=== PATIENT | female | born 1965 | race Hispanic/Latino ===

== ENCOUNTER 2018-11-02 14:28 | Emergency (ER) | payer BC ==
--- OUTSIDE RECORDS SUMMARY | 2018-11-02 14:30 | XMS REPORT | Continuity of Care Document ---
:1965 Author Organization Interface Problems Problem Status Onset Classification Date Comments Source Date Reported [id number],MORBID Active [facility] 5 City High blood Active Problem 11/09/2014 [facility] pressure [facility] Morbid Active Problem 11/09/2014 [facility] MORBID Active [facility] Medications Medication Details Route Status Patient Ordering Order Source Instructions Provider Date Promethazine 12.5 mg=1 tab, Active Hydrochloride PO, Q4H, PRN 2014 [facility] 12.5 MG Oral Nausea & City Tablet Vomiting, X 10 [Phenergan] day, # 30 tab, 0 Refill(s) Acetaminophen 15 ml, PO, Q4H, Active 24 MG/ML / PRN Pain, X [address] [facility] Codeine day, # 240 mL, 0 City Phosphate 2.4 Refill(s) MG/ML Oral Solution Enoxaparin 30 mg, 0.3 mL, Inactive Route: SUB-Q, 2014 [facility] Drug form: INJ, [facility] [id number], Dosing Weight 131.96, kg, Start date: 11/06/14 1:00:00, Stop date: 12/05/14 11:00:00Notes: (Same as: Lovenox) Famotidine 20 mg, 2 mL, No Longer Route: IVP, Drug Active 2014 [facility] form: INJ, Q12H, [facility] Dosing Weight 131.96, kg, Start date: 11/05/14 21:00:00, Duration: 30 day, Stop date: 12/05/14 9:00:00 Ketorolac 30 mg, 1 mL, No Longer Route: IVP, Drug Active 2014 [facility] form: INJ, Q6H, [facility] Dosing Weight 131.96, kg, Start date: 11/05/14 15:00:00, Duration: 6 doses or times, Stop date: 11/06/14 21:00:00Notes: (Same as:Toradol) IV bolus must be given >15 seconds. Give IM administration slowly and deeply into the muscle. Not for use > 4 days MEDICATION WASTE Product Size: 30 mg Product Wasted: ___ mg Sodium Chloride 25 mL, Route: No Longer 0.9% IV IV, Start date: Active [address] [place] [address] 11/05/14 [facility] 14:31:00, Duration: 30 day, Stop date: 12/05/14 14:30:00, PRN Line Flush BD Normal 10 mL, Route: No Longer Saline Flush IV, Drug Form: Active 2014 [facility] INJ, PRN, PRN [facility] Line Flush, Start date: 11/05/14 14:31:00, Duration: 30 day, Stop date: 12/05/14 14:30:00Notes: (Same as: BD Posiflush) Hydromorphone 15 mg, 30 mL, No Longer Route: IV, Active 2014 [facility] Loading [facility] Dose: 0.4mg, VACUUM APPLICATOR OPERATOR Dose: 0.2 mg, VACUUM APPLICATOR OPERATOR Lockout: 10 minutes, Continuous Basal Rate: 0 mg, 4 Hour Limit (In MG): 6, Drug Form: INJ, Continuous, Start date: 11/05/14 13:30:00, Duration: 30 day, Stop date: 12/05/14 13:...Notes: (Same as: Dilaudid) conc=0.5 mg/ml Hydromorphone VACUUM APPLICATOR OPERATOR Dose: ;Delay: ;Basal: Naloxone 0.04 mg, 0.1 mL, No Longer Route: IVP, Drug Active 2014 [facility] form: INJ, City Q2MIN, Dosing Weight 131.96, kg, PRN Narcotic Reversal, Start date: 11/05/14 13:03:00, Duration: 30 day, Stop date: 12/05/14 13:02:00Notes: Same as Narcan Hydromorphone 15 mg, 30 mL, Inactive Route: IV, 2014 [facility] Loading [facility] Dose: 0.4mg, VACUUM APPLICATOR OPERATOR Dose: 0.2 mg, VACUUM APPLICATOR OPERATOR Lockout: 10 minutes, Continuous Basal Rate: 0 mg, 4 Hour Limit (In MG): 6, Drug Form: INJ, Continuous, Start date: 11/05/14 12:30:00, Duration: 30 day, Stop date: 12/05/14 12:...Notes: (Same as: Dilaudid) conc=0.5 mg/ml Hydromorphone VACUUM APPLICATOR OPERATOR Dose: ;Delay: ;Basal: Naloxone 0.04 mg, 0.1 mL, Inactive Route: IVP, Drug 2014 [facility] form: INJ, City Q2MIN, Dosing Weight 131.96, kg, PRN Narcotic Reversal, Start date: 11/05/14 12:06:00, Duration: 30 day, Stop date: 12/05/14 12:05:00Notes: Same as Narcan enalaprilat 1.25 mg, 1 mL, No Longer Route: IVP, Drug Active 2014 [facility] form: INJ, Q6H, [facility] Dosing Weight 131.96, kg, PRN Hypertension, Start date: 11/05/14 12:04:00, Duration: 30 day, Stop date: 12/05/14 12:03:00, BP Systolic greater than 190 and BP Siastolic greater than 100Notes: (Same as: Vasotec-IV) Acetaminophen 15 mL, Route: No Longer 20 MG/ML / PO, Drug Form: Active 2014 [facility] Hydrocodone SOLN, Dosing City Bitartrate Weight 131.96, 0.667 MG/ML kg, Q4H, PRN Oral Solution Pain Score 4-6, Start date: 11/05/14 12:04:00, Duration: 30 day, Stop date: 12/05/14 12:03:00Notes: Do not exceed 4gm/day of acetaminophen. (Same as: [place] 325/7.5) Ondansetron 4 mg, 2 mL, No Longer Route: IVP, Drug Active 2014 [facility] form: INJ, Q12H, [facility] Dosing Weight 131.96, kg, PRN Nausea & Vomiting, Start date: 11/05/14 12:04:00, Duration: 30 day, Stop date: 12/05/14 12:03:00Notes: (Same as: Madyson) MEDICATION WASTE Product Size: 4 mg Product Wasted: ___ mg Promethazine 12.5 mg, 0.5 mL, No Longer Route: IM, Drug Active 2014 [facility] form: INJ, Q4H, [facility] Dosing Weight 131.96, kg, PRN Nausea & Vomiting, Start date: 11/05/14 12:04:00, Duration: 30 day, Stop date: 12/05/14 12:03:00Notes: Do not give IV push. (Same as: Phenergan) Calcium 1,000 mL, Rate: No Longer Chloride 0.0014 125 ml/hr, Active 2014 [facility] MEQ/ML / Infuse over: 8 City Potassium hr, Route: IV, Chloride 0.004 Dosing Weight MEQ/ML / Sodium 131.96 kg, Total Chloride 0.103 Volume: 1,000, MEQ/ML / Sodium Start date: Lactate 0.028 11/05/14 MEQ/ML 12:04:00, Injectable Duration: 30 Solution day, Stop date: 12/05/14 12:03:00 INVanz + Sodium 1 gm, Route: Inactive Chloride 0.9% IVPB, PRE OP, 2014 [facility] IV 100 mL Start date: [facility] 11/05/14 9:00:00, Duration: 1 doses or timesNotes: (Same as: INVanz) Refrigerate. NOT COMPATIBLE WITH D5W. Stable in refrigerator for 24 hours MEDICATION WASTE Product Size: 1000 mg Product Wasted: ___ mg Ondansetron 4 mg, 2 mL, Inactive Route: IVP, Drug 2014 [facility] form: INJ, ONCE, [facility] Dosing Weight 131.96, kg, PRN Nausea & Vomiting, Start date: 11/05/14 8:41:00Notes: (Same as: Zofran) MEDICATION WASTE Product Size: 4 mg Product Wasted: ___ mg Promethazine 6.25 mg, 0.25 No Longer mL, Route: IVPB, Active 2014 [facility] ONCE, Dosing City Weight 131.96, kg, PRN Nausea & Vomiting, Start date: 11/05/14 8:41:00Notes: Do not give IV push. (Same as: Phenergan) Dexamethasone 4 mg, 1 mL, No Longer Route: IVP, Drug Active 2014 [facility] form: INJ, ONCE, [facility] Dosing Weight 131.96, kg, PRN Nausea & Vomiting, Start date: 11/05/14 8:41:00Notes: Concentration: 4mg/ml Naloxone 0.04 mg, 0.1 mL, Inactive Route: IVP, Drug 2014 [facility] form: INJ, City Q2MIN, Dosing Weight 131.96, kg, PRN Narcotic Reversal, Start date: 11/05/14 8:41:00, Duration: 8 doses or times, Stop date: Limited # of timesNotes: Same as Narcan Flumazenil 0.2 mg, 2 mL, No Longer Route: IVP, Drug Active 2014 [facility] form: INJ, PRN, City Dosing Weight 131.96, kg, PRN Benzodiazepine Reversal, Initial dose, Start date: 11/05/14 8:41:00, Duration: 30 day, Stop date: 12/05/14 8:40:00Notes: (Same as: Romazicon) Meperidine 12.5 mg, 0.25 No Longer mL, Route: IVP, Active 2014 [facility] Drug form: INJ, City Q30Min, Dosing Weight 131.96, kg, PRN Other -See Comment, For shivering, Start date: 11/05/14 8:41:00, Duration: 2 doses or times, Stop date: Limited # of timesNotes: (Same As: Demerol) Calcium 1,000 mL, Rate: Inactive Chloride 0.0014 50 ml/hr, Infuse 2014 [facility] MEQ/ML / over: 20 hr, [facility] Potassium Route: IV, Chloride 0.004 Dosing Weight MEQ/ML / Sodium 131.96 kg, Total Chloride 0.103 Volume: 1,000, MEQ/ML / Sodium Start date: Lactate 0.028 11/05/14 MEQ/ML 8:41:00, Injectable Duration: 30 Solution day, Stop date: 12/05/14 8:40:00 Labetalol 5 mg, 1 mL, No Longer Route: IVP, Drug Active 2014 [facility] form: INJ, City Q5Min, Dosing Weight 131.96, kg, PRN Elevated BP, Start date: 11/05/14 8:41:00, Duration: 5 doses or times, Stop date: Limited # of timesNotes: (Same as: Normodyne, Trandate) Push over 2 minutes Give bolus over 2-3 minutes. Hydromorphone 0.5 mg, 0.25 mL, Inactive Route: IVP, Drug 2014 [facility] form: INJ, City Q5Min, Dosing Weight 131.96, kg, PRN Pain Score 7-10, Start date: 11/05/14 8:41:00, Duration: 4 doses or times, Stop date: Limited # of timesNotes: (Same as: Dilaudid) Morphine 2 mg, 0.2 mL, No Longer Route: IVP, Drug Active 2014 [facility] form: INJ, City Q5Min, Dosing Weight 131.96, kg, PRN Pain Score 4-6, Start date: 11/05/14 8:41:00, Duration: 5 doses or times, Stop date: Limited # of timesNotes: (Same as:MORPhine Sulfate) metoprolol 25 25 mg=1 tab, PO, Active 10/23/ mg oral tablet, Daily, [address] [facility] extended Refill(s) [facility] release lisinopril 10 10 mg=1 tab, PO, Active 10/23/ mg oral tablet Daily, [address] [facility] Refill(s) [facility] Allergies, Adverse Reactions, Alerts Substance Category Reaction Severity Reaction Status Date Comments Source type Reported Immunizations Immunization Date Given Site Status Last Updated Comments Source Results Order Name Results Value Reference Date Interpretation Comments Source Range ELECTROLYTE AGAP 10.4 meq/L 10.0 - 05 S 20.0 [facility] ELECTROLYTE B/C Ratio 13 6 - 25 11/06 [facility] ELECTROLYTE Globulin 3.0 g/dL 2.0 - 4.0 11/06 [facility] ELECTROLYTE A/G Ratio 1.1 0.7 - 1.6 11/06 S [facility] ELECTROLYTE Albumin Lvl 3.2 g/dL 3.5 - 5.0 11/06 [facility] ELECTROLYTE CO2 28 meq/L 24 - 32 11/06 [facility] ELECTROLYTE BUN 17 mg/dL 7 - 22 11/06 [facility] ELECTROLYTE Glucose Lvl 71 mg/dL 70 - 99 11/06 4Interpretive Data: Adult reference range values reflect the clinical guidelines of the [employer]. [facility] ELECTROLYTE AST 91 unit/L 0 - 37 11/06 S [facility] ELECTROLYTE Alk Phos 50 unit/L 39 - 136 11/06 S [facility] ELECTROLYTE Bili Total 0.4 mg/dL 0.2 - 1.3 11/06 S [facility] ELECTROLYTE Total 6.2 g/dL 6.4 - 8.4 11/06 S Protein [facility] ELECTROLYTE ALT 112 unit/L 0 - 65 11/06 S [facility] ELECTROLYTE eGFR 49 11/06 1Result Comment: The eGFR is calculated using the CKD-EPI formula. In most young, healthy individuals the eGFR will be > 90 mL/min/1.73m2. The eGFR declines with age. An eGFR of 60-89 may be normal in mL/min/1.7 some populations, particularly the elderly, for whom the CKD-EPI formula has not been extensively validated. Use of the eGFR is not recommended in the following populations: [address] Individuals with unstable creatinine concentrations, including patients and those with serious co-morbid conditions. Patients with extremes in muscle mass or diet. The data above are obtained from the National Kidney Disease Education Program (NKDEP) which additionally recommends that when the eGFR is used in patients with extremes of body mass index for purposes of drug dosing, the eGFR should be multiplied by the estimated BMI. ELECTROLYTE Chloride Lvl 102 meq/L 95 - 109 11/06 S [facility] ELECTROLYTE Calcium Lvl 8.1 mg/dL 8.5 - 10.5 11/06 S [facility] ELECTROLYTE Potassium 4.4 meq/L 3.5 - 5.1 11/06 S Lvl [facility] ELECTROLYTE Sodium Lvl 136 meq/L 135 - 145 11/06 S [facility] ELECTROLYTE Creatinine 1.3 mg/dL 0.5 - 1.4 11/06 S Lvl [facility] HEMATOLOGY Platelet 197 K/CMM 133 - 450 11/06 [facility] HEMATOLOGY MPV 8.3 fL 7.4 - 10.4 11/06 [facility] HEMATOLOGY WBC 6.2 K/CMM 3.7 - 10.4 11/06 [facility] HEMATOLOGY MCH 27.1 pg 27.0 - 11/06 MH 31.0 [facility] HEMATOLOGY MCHC 32.8 g/dL 32.0 - 11/06 MH 36.0 /2014 [facility] HEMATOLOGY RDW 16.9 % 11.5 - 11/06 MH 14.5 /2014 [facility] HEMATOLOGY MCV 82.7 fL 80.0 - 11/06 MH 98.0 /2014 [facility] Hgb 9.8 g/dL 12.0 - 11/06 MH 16.0 /2014 [facility] Hct 29.9 % 36.0 - 11/06 MH 48.0 /2014 [facility] RBC 3.61 M/CMM 4.20 - 05 MH 5.40 /2014 [facility] Segs-Bands # 4.3 K/CMM 1.5 - 8.1 05/08 MH /2014 [facility] Basophils 0.3 % 0.0 - 1.0 05/08 MH /2014 [facility] HEMATOLOGY Eosinophils 1.8 % 0.0 - 4.0 05/08 /2014 [facility] HEMATOLOGY Monocytes # 0.6 K/CMM 0.0 - 0.8 05/ /2014 [facility] HEMATOLOGY Lymphocytes 1.2 K/CMM 1.0 - 5.5 05/08 MH # /2014 [facility] HEMATOLOGY Eosinophils 0.1 K/CMM 0.0 - 0.5 05/08 MH # /2014 [facility] Monocytes 9.5 % 2.0 - 12.0 / /2014 [facility] HEMATOLOGY Lymphocytes 18.6 % 20.0 - 11/06 MH 40.0 /2014 [facility] HEMATOLOGY Segs 69.8 % 45.0 - 11/06 75.0 [facility] Upper GI Upper GI OMNIPAQUE UPPER GI SERIES 11/06/201411/06 - Series w Series - [facility] soluble DX soluble DX The fluoroscopy time is 3 seconds. Read by: Mike Jimenez MD Dictated Date/time: 11/06/14 07:53 Electronically Signed by: Mike Jimenez MD 11/06/14 07:53 FINAL REPORT Small volume of Omnipaque given orally passed easily from the distal esophagus into the gastric tube and duodenum. No contrast extravasation or obstruction is seen. Impression: 1. No contrast extravasation or obstruction identified. CHEM PANEL eGFR 41 11/05 2Result Comment: The eGFR is calculated using the CKD-EPI formula. In most young, healthy individuals the eGFR will be >90 mL/ min/1.73m2. The eGFR declines with age. An eGFR of 60-89 may be normal in mL/min/1. some populations, particularly the elderly, for whom the CKD-EPI formula has not been extensively validated. Use of the eGFR is not recommended in the following populations: [address] Individuals with unstable creatinine concentrations, including patients and those with serious co-morbid conditions. Patients with extremes in muscle mass or diet. The data above are obtained from the National Kidney Disease Education Program (NKDEP) which additionally recommends that when the eGFR is used in patients with extremes of body mass index for purposes of drug dosing, the eGFR should be multiplied by the estimated BMI. CHEM PANEL Creatinine 1.5 mg/dL 0.5 - 1.4 11/05 Lvl [facility] HEMATOLOGY PTT 32.7 s 22.9 - 11/05 8Interpretive 35.8 Data: Heparin [facility] Range: 57 - 92 Seconds HEMATOLOGY Platelet 219 K/CMM 133 - 450 11/05 [facility] BLOOD BANK Antibody Negative 11/[address] [facility] (11/05/14 9:00 AM) [facility] BLOOD BANK ABO/Rh O POS 11/05 RESULTS [facility] CHEM PANEL ALT 38 unit/L 0 - 65 10/23 [facility] CHEM PANEL Total 7.7 g/dL 6.4 - 8.4 10/23 [facility] CHEM PANEL AST 19 unit/L 0 - 37 10/23 [facility] CHEM PANEL Alk Phos 75 unit/L 39 - 136 10/23 [facility] CHEM PANEL Bili Total 0.3 mg/dL 0.2 - 1.3 10/23 [facility] CHEM PANEL eGFR 67 10/23 3Result Comment: The eGFR is calculated using the CKD-EPI formula. In most young, healthy individuals the eGFR will be >90 mL/ min/1.73m2. The eGFR declines with age. An eGFR of 60-89 may be normal in mL/min/1. some populations, particularly the elderly, for whom the CKD-EPI formula has not been extensively validated. Use of the eGFR is not recommended in the following populations: [address] Individuals with unstable creatinine concentrations, including patients and those with serious co-morbid conditions. Patients with extremes in muscle mass or diet. The data above are obtained from the National Kidney Disease Education Program (NKDEP) which additionally recommends that when the eGFR is used in patients with extremes of body mass index for purposes of drug dosing, the eGFR should be multiplied by the estimated BMI. CHEM PANEL Calcium Lvl 8.3 mg/dL 8.5 - 10.5 10/23 [facility] CHEM PANEL Chloride Lvl 103 meq/L 95 - 109 10/23 [facility] CHEM PANEL Potassium 3.5 meq/L 3.5 - 5.1 10/23 [facility] CHEM PANEL Sodium Lvl 137 meq/L 135 - 145 10/23 [facility] CHEM PANEL Creatinine 1.0 mg/dL 0.5 - 1.4 10/23 [facility] CHEM PANEL CO2 29 meq/L 24 - 32 10/23 [facility] CHEM PANEL BUN 18 mg/dL 7 - 22 10/23 [facility] CHEM PANEL Glucose Lvl 94 mg/dL 70 - 99 10/23 5Interpretive Data: Adult reference range values reflect the clinical guidelines of the [employer]. [facility] CHEM PANEL Albumin Lvl 3.8 g/dL 3.5 - 5.0 10/23 [facility] CHEM PANEL A/G Ratio 1.0 0.7 - 1.6 10/23 [facility] CHEM PANEL Globulin 3.9 g/dL 2.0 - 4.0 10/23 [facility] CHEM PANEL AGAP 8.5 meq/L 10.0 - 10/23 20.0 [facility] CHEM PANEL B/C Ratio 18 6 - 25 10/23 [facility] CHEM PANEL Vitamin D, null 30 - 100 10/23 6Interpretive Data: Reference range is based on recommendations in the Endocrine 25-OH, Total /2015 Society Clinical Practice Guideline (J Clin Endocrinol Metab [facility] 2011;96:9306-8796) [facility] HEMATOLOGY INR 0.94 0.85 - 10/23 7Interpretive Data: RECOMMENDED RANGES FOR PROTIME INR: 1. 2.0-3.0 for most medical and surgical thromboembolic states. [facility] 2.5-3.5 for artificial heart valves and recurrent embolism. [facility] INR SHOULD BE USED ONLY FOR PATIENTS ON STABLE ANTICOAGULANT THERAPY. HEMATOLOGY PT 12.6 s 12.0 - 10/23 MH 14.7 /2014 [facility] HEMATOLOGY PTT 35.0 s 22.9 - 10/23 9Interpretive MH 35.8 /2014 Data: Heparin [facility] Range: 57 - 92 Seconds HEMATOLOGY MPV 7.7 fL 7.4 - 10.4 10/23 /2014 [facility] HEMATOLOGY Platelet 264 K/CMM 133 - 450 10/23 /2014 [facility] HEMATOLOGY MCV 81.6 fL 80.0 - 10/23 MH 98.0 /2014 [facility] HEMATOLOGY MCHC 32.0 g/dL 32.0 - 10/23 MH 36.0 /2014 [facility] HEMATOLOGY RDW 16.3 % 11.5 - 10/23 MH 14.5 /2014 [facility] MCH 26.2 pg 27.0 - 10/23 MH 31.0 /2014 [facility] HEMATOLOGY RBC 4.21 M/CMM 4.20 - 10/23 MH 5.40 /2014 [facility] HEMATOLOGY Hct 34.4 % 36.0 - 10/23 MH 48.0 /2014 [facility] HEMATOLOGY Hgb 11.0 g/dL 12.0 - 10/23 MH 16.0 /2014 [facility] HEMATOLOGY WBC 6.8 K/CMM 3.7 - 10.4 10/23 /2014 [facility] HEMATOLOGY Eosinophils 0.2 K/CMM 0.0 - 0.5 10/23 MH # /2014 [facility] HEMATOLOGY Monocytes 10.6 % 2.0 - 12.0 10/23 /2014 [facility] HEMATOLOGY Lymphocytes 24.0 % 20.0 - 10/23 MH 40.0 /2014 [facility] HEMATOLOGY Monocytes # 0.7 K/CMM 0.0 - 0.8 10/23 /2014 [facility] HEMATOLOGY Lymphocytes 1.6 K/CMM 1.0 - 5.5 10/23 MH # /2014 [facility] HEMATOLOGY Segs-Bands # 4.2 K/CMM 1.5 - 8.1 10/23 /2014 [facility] HEMATOLOGY Segs 61.7 % 45.0 - 10/23 MH 75.0 [facility] HEMATOLOGY Basophils 0.7 % 0.0 - 1.0 10/23 /2014 [facility] HEMATOLOGY Eosinophils 3.0 % 0.0 - 4.0 10/23 /2014 [facility] PARATHYROID PTH Intact 149.5 11.1 - 10/23 MH PROFILE pg/mL 79.5 /2014 [facility] URINE AND Micro? Performed 10/23 [facility] *NA* [facility] (10/23/14 2:48 PM) URINE AND UA <=1.0 0.1 - 1.0 10/23 STOOL Urobilinogen mg/dL [facility] URINE AND UA Mucus Few /LPF None Seen 10/23 STOOL /LPF /2014 [facility] URINE AND UA Leuk Est Negative Negative 10/[address] [facility] (10/23/14 2:48 PM) [facility] URINE AND UA Ketones Negative Negative 10/23 STOOL mg/dL mg/dL [facility] URINE AND UA Bili Negative Negative 10/[address] [facility] *NA* [facility] (10/23/14 2:48 PM) URINE AND UA Blood Large Negative 10/23 [facility] *ABN* [facility] (10/23/14 2:48 PM) URINE AND UA Nitrite Negative Negative 10/23 [facility] (10/23/14 2:48 PM) [facility] URINE AND UA Color Light Yellow Yellow 10/23 [facility] *NA* [facility] (10/23/14 2:48 PM) URINE AND UA Sq Epi Many /LPF Few /LPF 10/23 [facility] URINE AND UA WBC 3 /HPF 0 - 5 10/23 [facility] URINE AND UA RBC null 0 - 2 10/23 [facility] URINE AND UA Turbidity Slight Clear 10/23 [facility] *ABN* [facility] (10/23/14 2:48 PM) URINE AND UA Spec Grav 1.011 <=1.030 10/23 [facility] URINE AND UA pH 5.0 5.0 - 8.0 10/23 [facility] URINE AND UA Protein 10 mg/dL Negative 10/23 STOOL mg/dL [facility] URINE AND UA Glucose Negative Negative 10/23 STOOL mg/dL mg/dL [facility] Chest 2 Chest 2 EXAM: Chest 2 views 10/23 - views DX views DX - [facility] HISTORY: Coughing [facility] COMPARISON: None Read by: Xena Miranda MD Dictated Date/time: 10/23/14 15:38 Electronically Signed by: Xena Miranda MD 10/23/14 15:38 FINAL REPORT The heart size is normal and the lungs are clear. There is no pleural effusion or pneumothorax. No gross skeletal abnormality. IMPRESSION: No acute abnormality. Vital Signs Vital Sign Value Date Comments Source Heart Rate 72 11/06/2014 [facility] Respitory Rate 18 11/06/2014 [facility] Systolic (mm Hg) 114 11/06/2014 [facility] Diastolic (mm Hg) 75 11/06/2014 [facility] Systolic (mm Hg) 127 11/06/2014 [facility] Diastolic (mm Hg) 76 11/06/2014 [facility] Respitory Rate 18 11/06/2014 [facility] Heart Rate 58 11/06/2014 [facility] Temperature Oral (F) 98.2 F 11/06/2014 [facility] Temperature Oral (F) 97.9 F 11/06/2014 [facility] Heart Rate 67 11/06/2014 [facility] Respitory Rate 16 11/06/2014 [facility] Systolic (mm Hg) 104 11/06/2014 [facility] Diastolic (mm Hg) 66 11/06/2014 [facility] Temperature Oral (F) 97.9 F 11/06/2014 [facility] Height 172.72 cm 11/05/2014 [facility] BMI Calculated 43.12 11/05/2014 [facility] Weight 128.636 11/05/2014 [facility] Height 170.18 cm 10/23/2014 [facility] Weight 131.96 10/23/2014 [facility] BMI Calculated 45.56 10/23/2014 [facility] Encounters Location Location Encounter Encounter Reason Attending ADM DC Status Source Details Type Number For Provider Date Date Visit [facility] Inpatient [id number] Laith 11/05 11/06 Librado Milligan /2014 [facility] Procedures Procedure Code Date Perfomer Comments Source Laparoscopic sleeve [id number] 11/05/2014 [facility] gastrectomy [facility] [id number] 1x's [address] [facility] section<sup>1</sup> [facility] Tonsillectomy [id number] [facility]
[2018-11-02] MEDS ORDERED: NA CHLORIDE 0.9% 1,000 ML ONE (14:53)
[2018-11-02 14:59] LABS: Absolute Lymphocytes (CBC) 1.6 K/uL (0.7-4.9); Absolute Monocytes 1.5 K/uL (0.1-1.3); Absolute Neutrophil 8.3 K/uL (1.8-8.0); Basophils % 0.3 % (0-1.3); Eosinophils % 0.2 % (0-4.4); Lymphocytes % 13.8 % (15.3-44.8); MPV 8.7 fL (7.6-11.3); Monocytes % 13.4 % (3.3-12.3); RBC Red Blood Cell Count 2.04 M/uL (3.86-4.86)
[2018-11-02 15:12] LABS: Hematocrit 17.4 % (36.0-45.0)
[2018-11-02 15:14] LABS: ALT/SGPT 9 U/L (12-78); AST/SGOT 12 U/L (15-37); Albumin 2.5 g/dL (3.4-5.0); Alkaline Phosphatase 41 U/L (45-117); BUN Blood Urea Nitrogen 58 mg/dL (7-18); Bicarbonate 25 mmol/L (21-32); Bilirubin Total 0.2 mg/dL (0.2-1.0); Glucose Level 102 mg/dL (74-106); Lipase 59 U/L (73-393); Magnesium 2.1 mg/dL (1.8-2.4); Potassium 3.9 mmol/L (3.5-5.1); Protein, Total 5.3 g/dL (6.4-8.2); Sodium Level 140 mmol/L (136-145); Troponin (Emerg Dept Use Only) < 0.02 ng/mL (0.0-0.045)
--- NOTE | 2018-11-02 16:28 | RAD REPORT ---
EXAM DESCRIPTION: CT - Abdomen Pelvis Wo Contrast - 11/02/2018 3:59 pm CLINICAL HISTORY: Abdominal pain COMPARISON: None TECHNIQUE: Computed axial tomography of the abdomen and pelvis was obtained. Oral contrast not reque sted. IV contrast not administered secondary to elevated creatinine. All CT scans are performed using dose optimization technique as appropriate and may include automated exposure control or mA/KV adjustment according to patient size. FINDINGS: The evaluation of solid organs, vessels and bowel is limited secondary to the lack of con trast administration. The liver, spleen, pancreas, adrenals and left kidney appear grossly normal. 1 millimeter nonobstruct ing right renal calculus The appendix is normal. There is no evidence of diverticulitis. The patient is status post abdominoplasty 2 days ago. A drain is present within the anterior subcutan eous fat. Air is present within the anterior subcutaneous tissues. Within the left anterior subcutane ous fat of the lower abdomen/upper pelvis extending posterolaterally is a fluid collection measuring 20 x 2 centimeters. It has increased density and has the appearance of blood. IMPRESSION: 20 x 2 centimeter hematoma within the anterior subcutaneous fat of the left lower abdom en/left upper pelvis extending posterolaterally. Follow up ultrasound in a few days would be helpful to assess stability
[2018-11-02] MEDS ORDERED: NA CHLORIDE 0.9% 250 ML ONE (16:58)
--- NOTE | 2018-11-02 17:05 | ER ---
Nurse's Notes [facility] Name: Nancy Sahni Age: 53 yrs Sex: Female : 1965 Arrival Date: 11/02/2018 Time: 14:28 Bed 4 Private MD: Diagnosis: post operative bleeding complication;acute blood loss anemia Presentation: 11/02 14:29 Presenting complaint: EMS states: Pt had tummy tuck on and had been taking her la1 diet meds up to two days before the surgery and was supposed to D/C 2 weeks before, pt states she is also not drinking much. Transition of care: patient was not received from another setting of care. Onset of symptoms was November 02, 2018. Risk Assessment: Do you want to hurt yourself or someone else? Patient reports no desire to harm self or others. Initial Sepsis Screen: Does the patient meet any 2 criteria? No. Patient's initial sepsis screen is negative. Does the patient have a suspected source of infection? No. Patient's initial sepsis screen is negative. Care prior to arrival: None. 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 - Social history:: Smoking status: Patient/guardian denies using tobacco. - Ebola Screening: : No symptoms or risks identified at this time. Screenin:45 Abuse screen: Denies threats or abuse. Nutritional screening: No deficits noted. la1 Tuberculosis screening: No symptoms or risk factors identified. Fall Risk None identified. Assessment: 14:45 General: Appears uncomfortable, Behavior is calm, cooperative. Pain: Complains of pain la1 in right lower quadrant and left lower quadrant. Neuro: Level of Consciousness is awake, alert, obeys commands, Oriented to person, place, time, situation. Cardiovascular: Capillary refill < 3 seconds Patient's skin is warm and dry. Respiratory: Airway is patent Respiratory effort is even, unlabored, Respiratory pattern is regular, symmetrical, Breath sounds are clear bilaterally. GI: Abdomen is non-distended, obese, [place] drain noted to midline surgical abd wound without redness or purulent drainage Bowel sounds present X 4 quads. Abd is soft X 4 quads. : No signs and/or symptoms were reported regarding the genitourinary system. 15:05 Reassessment: Patient states she is cold, warm blankets provided, at bedside. ae3 Patient denies need to urinate at this time.. 15:30 Reassessment: Patient assisted onto bedpan to urinate. Patient tolerated fairly well. ae3 : Urine is cloudy, blood tinged, small blood clots present. 16:24 Reassessment: Patient returned from CT, report from inweaver that abdominal dressing was ae3 saturated. Observed small amount of sanguinous fluid surrounding abdominal surgical site. OG drain stitched in place to the lower left flank area, minimal amount of sanguinous fluid noted. Cleansed area and applied ABD pad to abdomen, reapplied abdominal binder, ok per provider. Will continue to monitor. 17:28 Reassessment: Patient appears in no apparent distress at this time. and ae3 daughter at bedside. 17:55 Reassessment: Patient assisted onto bedpan to urinate. Urine was light yellow with ae3 lessened blood tinged color. 18:32 Reassessment: Report called to receiving institution, spoke to JANNA Sandhu the receiving ae3 nurse. 18:34 Reassessment: Patient c/o itching to neck area, nurse notified provider, new orders ae3 received to administer 25 mg IV benadryl before transfer. . Vital Signs: 14:29 BP 100 / 59; Pulse 101; Resp 16; Temp 97.9; Pulse Ox 98% on R/A; Pain 6/10; la1 15:46 BP 110 / 61; Pulse 95; Resp 20; Pulse Ox 98% on R/A; ph 16:29 BP 97 / 59; Pulse 88; Resp 17; Pulse Ox 99% on R/A; ae3 16:48 Weight 86.18 kg; la1 17:05 BP 104 / 59; Pulse 90; Resp 18; Temp 99.1(TE); Pulse Ox 99% on R/A; ae3 17:10 BP 94 / 56; Pulse 88; Resp 17; Temp 98(TE); Pulse Ox 99% on R/A; ae3 17:15 BP 99 / 58; Pulse 88; Resp 16; Temp 99(TE); Pulse Ox 98% on R/A; ae3 17:20 BP 99 / 59; Pulse 96; Resp 16; Temp 98.5(TE); Pulse Ox 99% on R/A; ae3 18:05 BP 107 / 62; Pulse 92; Resp 17; Temp 98.3; Pulse Ox 98% on R/A; ae3 17:10 Rate at 75 ml/hour ae3 17:15 Rate changed to 100 ml/hour ae3 17:20 Rate changed to 125 ml/ hour. ae3 ED Course: 14:28 Patient arrived in ED. la1 14:29 Giovani Diaz MD is Attending Physician. ps1 14:31 Triage completed. la1 14:31 Arm band placed on left wrist. la1 14:44 Kayden Meyers RN is Primary Nurse. la1 14:45 Call light in reach. Side rails up X 1. la1 14:45 Maintain EMS IV. Good blood return noted. Site clean \T\ dry. Gauge \T\ site: 18G rAC. IV. la 1 14:48 EKG done, by ED staff, reviewed by Giovani Diaz MD. em1 15:03 Radiology exam delayed due to test not completed at this time. mw3 15:41 Note: neg upt per ryne boycern. bq 15:59 Abdomen In Process Unspecified. EDMS 16:00 Note: ct a/p done w/o iv contrast due to extremely high creat (2.97) per dr schuster. mw3 18:36 No provider procedures requiring assistance completed. Patient transferred, IV remains ae3 in place. 11/03 07:02 Primary Nurse role handed off by Kayden Meyers RN ae3 07:02 Attending Physician role handed off by Giovani Diaz MD ae3 Administered Medications: 11/02 14:44 Drug: NS 0.9% 1000 ml Route: IV; Rate: 1 bolus; Site: right antecubital; la1 15:45 Follow up: IV Status: Completed infusion; IV Intake: 1000ml ae3 18:38 Drug: Benadryl 25 mg Route: IVP; Site: right antecubital; ae3 Medication: 17:05 Blood products: PRBCs X 1 unit given. ae3 Intake: 15:45 IV: 1000ml; Total: 1000ml. ae3 Outcome: 17:04 ER care complete, transfer ordered by . ps1 18:36 Transferred by ground EMS to [facility]. ae3 18:36 Condition: stable 18:36 Instructed on the need for transfer, Demonstrated understanding of instructions. 18:41 Patient left the ED. ae3 Signatures: Dispatcher [employer] EDMS Kaya Palma Eric em1 Kayden Meyers RN RN la1 Mitali Bae RN RN Giovani Munoz MD MD ps1 Willis, Dawn henry3 Jenifer Funk ae3 Corrections: (The following items were deleted from the chart) 16:15 14:29 Acuity: JODIE 3 la1 la1 17:28 17:10 BP 94 / 56; Pulse 88bpm; Resp 17bpm; Pulse Ox 99% RA; Temp 98F Temporal; ae3 ae3 17:28 17:15 BP 99 / 58; Pulse 88bpm; Resp 16bpm; Pulse Ox 98% RA; Temp 99F Temporal; ae3 ae3 17:28 17:20 BP 99 / 59; Pulse 96bpm; Resp 16bpm; Pulse Ox 99% RA; Temp 98.5F; ae3 ae3 18:32 17:35 Reassessment: Report called to receiving institution, spoke to receiving nurse la1 named JANNA Sandhu.. la1 11/03 07:10 07:09 Patient left the ED. ae3 ae3
--- NOTE | 2018-11-02 17:05 | EDPHYS ---
Physician Documentation [facility] Name: Nancy Sahni Age: 53 yrs Sex: Female : 1965 Arrival Date: 11/02/2018 Time: 14:28 Bed 4 Private MD: ED Physician HPI: 11/02 14:32 This 53 yrs old Female presents to ER via EMS with complaints of Dizziness. ps1 14:32 Patient presenting with near syncope, orthostatic hypotension per EMS. Patient had a ps1 recent tummy tuck by in [place]. States everytime that she stands up she feels like she is going to passout. Was pale appearing and EMS started fluids and she got her color back. No abdominal pain and has drains. Surgeon reportedly concerned 2/2 patient continually taking adipex until 2 days prior to surgery. . 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 - Social history:: Smoking status: Patient/guardian denies using tobacco. - Ebola Screening: : No symptoms or risks identified at this time. ROS: 14:32 Constitutional: Negative for fever, chills, and weight loss, Eyes: Negative for injury, ps1 pain, redness, and discharge, ENT: Negative for injury, pain, and discharge, Cardiovascular: Negative for chest pain, palpitations, and edema, Respiratory: Negative for shortness of breath, cough, wheezing, and pleuritic chest pain. 14:32 MS/Extremity: Negative for injury and deformity, Skin: Negative for injury, rash, and discoloration. 14:32 Abdomen/GI: Positive for expected post surgical pain. 14:32 Neuro: Positive for near syncope. Exam: 14:32 Constitutional: This is a well developed, well nourished patient who is awake, alert, ps1 and in no acute distress. Head/Face: Normocephalic, atraumatic. Eyes: Pupils equal round and reactive to light, extra-ocular motions intact. Lids and lashes normal. Conjunctiva and sclera are non-icteric and not injected. Neck: Trachea midline, no thyromegaly or masses palpated, and no cervical lymphadenopathy. Supple, full range of motion without nuchal rigidity, or vertebral point tenderness. No Meningismus. Chest/axilla: Normal chest wall appearance and motion. Nontender with no deformity. No lesions are appreciated. Respiratory: Lungs have equal breath sounds bilaterally, clear to auscultation and percussion. No rales, rhonchi or wheezes noted. No increased work of breathing, no retractions or nasal flaring. Skin: Warm, dry with normal turgor. Normal color with no rashes, no lesions, and no evidence of cellulitis. MS/ Extremity: Pulses equal, no cyanosis. Neurovascular intact. Full, normal range of motion. 14:32 Cardiovascular: Rate: tachycardic, Rhythm: regular, Pulses: no pulse deficits are appreciated. Vital Signs: 14:29 BP 100 / 59; Pulse 101; Resp 16; Temp 97.9; Pulse Ox 98% on R/A; Pain 6/10; la1 15:46 BP 110 / 61; Pulse 95; Resp 20; Pulse Ox 98% on R/A; ph 16:29 BP 97 / 59; Pulse 88; Resp 17; Pulse Ox 99% on R/A; ae3 16:48 Weight 86.18 kg; la1 17:05 BP 104 / 59; Pulse 90; Resp 18; Temp 99.1(TE); Pulse Ox 99% on R/A; ae3 17:10 BP 94 / 56; Pulse 88; Resp 17; Temp 98(TE); Pulse Ox 99% on R/A; ae3 17:15 BP 99 / 58; Pulse 88; Resp 16; Temp 99(TE); Pulse Ox 98% on R/A; ae3 17:20 BP 99 / 59; Pulse 96; Resp 16; Temp 98.5(TE); Pulse Ox 99% on R/A; ae3 18:05 BP 107 / 62; Pulse 92; Resp 17; Temp 98.3; Pulse Ox 98% on R/A; ae3 17:10 Rate at 75 ml/hour ae3 17:15 Rate changed to 100 ml/hour ae3 17:20 Rate changed to 125 ml/ hour. ae3 MDM: 14:32 Patient medically screened. ps1 11/02 14:31 Order name: CBC with Diff; Complete Time: 16:07 ps1 11/02 14:31 Order name: Lipase; Complete Time: 16:07 ps1 11/02 14:31 Order name: Magnesium; Complete Time: 16:07 ps1 11/02 14:31 Order name: Protime (+inr); Complete Time: 16:07 ps1 11/02 14:31 Order name: Ptt, Activated; Complete Time: 16:07 ps1 11/02 14:31 Order name: Troponin (emerg Dept Use Only); Complete Time: 16:07 ps1 11/02 14:31 Order name: CMP; Complete Time: 16:07 ps1 11/02 15:23 Order name: Type And Screen ss 11/02 15:51 Order name: Urine Dipstick--Ancillary (enter results) ms 11/02 15:51 Order name: Urine --Ancillary (enter results) ms 11/02 15:59 Order name: Abdomen ; Complete Time: 16:28 EDMS 11/02 16:17 Order name: Packed RBC Leukored -1 EDMS 11/02 14:31 Order name: EKG; Complete Time: 14:32 ps1 11/02 14:31 Order name: Cardiac monitoring; Complete Time: 14:47 ps1 11/02 14:31 Order name: EKG - Nurse/Tech; Complete Time: 14:47 ps1 11/02 14:31 Order name: IV Saline Lock; Complete Time: 14:47 ps1 11/02 14:31 Order name: Labs collected and sent; Complete Time: 14:47 ps1 11/02 14:31 Order name: NPO; Complete Time: 14:32 ps1 11/02 14:31 Order name: O2 Per Protocol; Complete Time: 14:48 ps1 11/02 14:31 Order name: O2 Sat Monitoring; Complete Time: 14:47 ps1 11/02 14:31 Order name: Urine Dipstick-Ancillary (obtain specimen); Complete Time: 15:41 ps1 EC:37 Rate is 90 beats/min. Rhythm is regular. QRS [place] is Normal. CO interval is normal. QRS ps1 interval is normal. QT interval is normal. No Q waves. T waves are Normal. T waves are Inverted in leads II, III, aVF. No ST changes noted. Clinical impression: NSR w/ Non-specific ST/T Changes. Interpreted by me. Administered Medications: 14:44 Drug: NS 0.9% 1000 ml Route: IV; Rate: 1 bolus; Site: right antecubital; la1 15:45 Follow up: IV Status: Completed infusion; IV Intake: 1000ml ae3 18:38 Drug: Benadryl 25 mg Route: IVP; Site: right antecubital; ae3 Disposition: 11/02/18 17:04 Transfer ordered to Other Acute Care Facility. Diagnosis are post operative bleeding complication, acute blood loss anemia. - Reason for transfer: Higher level of care. - Accepting physician is delgado. - Condition is Serious. - Problem is new. - Symptoms have improved. Signatures: Dispatcher [employer] [facility] Priti Thapa, DOROTHY-C ELECTRIC WHEELCHAIR REPAIRER-Jesi Bryant RN RN ss Kayden Meyers RN RN la1 Giovani Diaz MD MD ps1 Jenifer Funk ae3 Corrections: (The following items were deleted from the chart) 14:37 14:32 Patient presenting with near syncope, orthostatic hypotension per EMS. Patient ps1 had a recent tummy tuck by in [place]. States everytime that she stands up she feels like she is going to passout. Was pale appearing and EMS started fluids and she got her color back. No abdominal pain and has drains. . ps1 15:59 14:32 Abdomen Pelvis W Con+CT.RAD.BRZ ordered. [facility] EDOK 18:41 17:04 11/02/2018 17:04 Transfer ordered to Other Acute Care Facility. Diagnosis is post ae3 operative bleeding complication; acute blood loss anemia. Reason for transfer: Higher level of care. Accepting physician is delgado. Condition is Serious. Problem is new. Symptoms have improved. ps1 11/03 07:09 05/04 18:41 11/02/2018 17:04 Transfer ordered to Other Acute Care Facility. Diagnosis ae3 is post operative bleeding complication; acute blood loss anemia. Reason for transfer: Higher level of care. Accepting physician is delgado. Condition is Serious. Problem is new. Symptoms have improved. ae3
[2018-11-02] MEDS ORDERED: DIPHENHYDRAMINE 50 MG/ML VIAL ONE (18:34)
[2018-11-02 19:08] VITALS: BP 107/62; TEMP 98.3; O2SAT 98
[2018-11-02 20:23] LABS: Urine Blood 3+ (NEG); Urine Glucose NEGATIVE (NEG); Urine Protein 2+ (NEG)
--- NOTE | 2018-11-03 06:08 | EKG ---
Test Date: 2018-11-02 Test Time: 14:37:53 Floor Renovator: DOMINICK MEASUREMENT RESULTS: Intervals: Rate: 90 MD: 130 QRSD: 90 QT: 380 QTc: 464 [place]: P: 51 MD: 130 QRS: 59 T: -12 INTERPRETIVE STATEMENTS: Normal sinus rhythm ST & T wave abnormality, consider inferior ischemia Prolonged QT Abnormal ECG Compared to ECG 11/21/2016 14:55:17 Possible ischemia now present Prolonged QT interval now present ST (T wave) deviation still present Electronically Signed On 11-03-18 06:07:12 CDT by Vidal Jackson
== END 2018-11-03 07:09 ==
LOC: ER 14:28
DX: D62 Acute posthemorrhagic anemia (principal); Y83.8 Other surgical procedures as the cause of abnormal reaction of the patient, or of later complication, without mention of misadventure at the time of the procedure
CPT/HCPCS: 36415; 36430; 74176; 80053; 81003; 81025; 83690; 83735; 84484; 85025; 85610; 85730; 86850; 86900; 86901; 93005; 96361; 96374; 99285; J7030; P9016

== ENCOUNTER 2019-09-10 07:46 | Emergency (ER) | payer BC ==
--- OUTSIDE RECORDS SUMMARY | 2019-09-10 07:56 | XMS REPORT ---
:1965 [facility] Address [address] [place] [address] Dr. Trejo [address] [place] [id number] Care Team Providers Name Role Phone Unavailable Unavailable Unavailable Problems This patient has no known problems. Allergies, Adverse Reactions, Alerts This patient has no known allergies or adverse reactions. Medications This patient has no known medications.
--- OUTSIDE RECORDS SUMMARY | 2019-09-10 07:57 | XMS REPORT | Summary of Care ---
:1965 Author Organization [facility] Address [address] [place] [address] Care Team Providers Name Role Phone Nguyễn Anderson Cyn Primary Care Provider Reason for Visit Reason Comments Sore Throat Cough Auth/Cert Status Reason Specialty Diagnoses / Referred By Referred To Procedures Contact Contact Emergency Medicine Diagnoses COUGH,SORE THROAT,CONGESTION [facility] Emergency Dept [address] [place] [address] [place] [address] Encounter Details Date Type Department Care Team Description 09/09/2019 Emergency ADC-Emergency [place], Folusho Sore throat (Primary Dx); Department F, DRIVER/MERCHANDISER Cough; [address] [place] [address] [address] [facility] [place] [address] [address] [place] [address] Allergies No Known Allergiesdocumented as of this encounter (statuses as of 09/09/2019) Medications Medication Sig Dispensed Refills Start Date End Date Status codeine-guaifenesin Take 5 mL by mouth 120 mL 0 09/09/2019 Active 10-100 mg/5 mL every 6 (six) hours solutionIndications: as needed for Cough Cough. albuterol 90 Inhale 2 Puffs 8.5 g 0 09/09/2019 Active mcg/actuation every 4 (four) inhalerIndications: hours as needed for Cough, Acute viral Wheezing or bronchitis Shortness of Breath. documented as of this encounter (statuses as of 09/09/2019) Active Problems Not on filedocumented as of this encounter (statuses as of 09/09/2019) Social History Tobacco Use Types Packs/Day Years Used Date Never Assessed Sex Assigned at Date Recorded Not on file Job Start Date Occupation Industry Not on file Not on file Not on file Travel History Travel Start Travel End No recent travel history available. documented as of this encounter Last Filed Vital Signs Vital Sign Reading Time Taken Comments Blood Pressure 149/77 09/09/2019 12:16 PM CDT Pulse 62 09/09/2019 12:16 PM CDT Temperature 36.8 C (98.2 F) 09/09/2019 12:16 PM CDT Respiratory Rate 18 09/09/2019 12:16 PM CDT Oxygen Saturation 99% 09/09/2019 12:16 PM CDT Inhaled Oxygen Concentration - - Weight 96.2 kg (212 lb) 09/09/2019 12:14 PM CDT Height 172.7 cm (5' 8") 09/09/2019 12:14 PM CDT Body Mass Index 32.23 09/09/2019 12:14 PM CDT documented in this encounter Discharge Instructions InstructionsFrancois Foy FNP - 09/09/2019 You were seen today for Chief Complaint Patient presents with Sore Throat Cough Your ER diagnosis was ICD-10-CM ICD-9-CM 1. Sore throat J02.9 462 2. Cough R05 786.2 3. Acute viral bronchitis J20.8 466.0 NO LIFE-THREATENING FINDINGS ON TODAY'S EXAM. YOUR PRESCRIPTIONS : Medication List START taking these medications albuterol 90 mcg/actuation inhaler Commonly known as: VENTOLIN Inhale 2 Puffs every 4 (four) hours as needed for Wheezing or Shortness of Breath. codeine-guaifenesin 10-100 mg/5 mL solution Commonly known as: ROBITUSSIN AC Take 5 mL by mouth every 6 (six) hours as needed for Cough. Where to Get Your Medications You can get these medications from any pharmacy Bring a paper prescription for each of these medications albuterol 90 mcg/actuation inhaler codeine-guaifenesin 10-100 mg/5 mL solution ER precautions and follow up : 1. Return to ER if your symptoms should worsen or fail to improve within 72 hours. 2. The care provided in the emergency room was for acute problems only. 3. You should follow up with your primary care provider within 72 hours. 4. Fill and take all your medications as prescribed. 5. Make sure you are staying adequately hydrated. Busque attencion immediatamente si usted tiene los sitomas sigue, vuelve peor o si hay sitomas nuevas o para cualquiera preoccupacion incluyendo dolor del pecho , falta aire, se siente debile, mas fievre, mas dolor, nausea, vomitando, sangrando que no es normal, confusion, baja or pierdas conciencia. FOLLOW-UP RECOMMENDATIONS: RECOMMEND FOLLOW-UP WITH A PRIMARY CARE PROVIDER OR SPECIALIST IN 2-5 DAYS, ESPECIALLY IF NO IMPROVEMENT IN SYMPTOMS. MAY FOLLOW-UP WITH A PROVIDER OF YOUR CHOICE, SUCH : 1. A PHYSICIAN OF YOUR CHOICE 2. [facility], . LOCATIONS IN [facility] 3. [facility], [address] [place] [address]; OR, IF YOU WISH TO FOLLOW-UP WITHIN THE [facility], MAY TRY THESE OPTIONS (CLINIC APPOINTMENTS AVAILABLE ON SCYA-NE-BPPZ BASIS): 1. SCHEDULE AN APPOINTMENT ONLINE AT WWW[facility] 2. OR CALL THE [facility] ACCESS CENTER AT OR 3. OR CALL YOUR [facility] PHYSICIAN'S OFFICE DIRECTLY IF YOU ARE ALREADY AN ESTABLISHED [facility] PATIENT. AttachmentsThe following attachments cannot be sent through Care Everywhere.Bronchitis, No Antibiotic (Adult) (Palauan)Albuterol inhalation aerosol (Palauan)documented in this encounter Plan of Treatment Health Maintenance Due Date Last Done Comments DTaP,Tdap,and Td Vaccines (1 - 1977 Tdap) PAP SMEAR 1987 Breast Cancer Screening 2006 (MAMMOGRAM) COLONOSCOPY 2016 Zoster Recombinant Vaccine 2016 (SHINGRIX) (1 of 2) INFLUENZA VACCINE (#1) 2019 PNEUMOCOCCAL 0-64 YEARS COMBINED Aged Out No longer eligible based on SERIES patient's age to complete this topic documented as of this encounter Procedures Procedure Name Priority Date/Time Associated Diagnosis Comments ASSIGNMENT OF BENEFITS Routine 09/09/2019 4:22 PM CDT NOTICE OF PRIVACY Routine 09/09/2019 11:50 AM PRACTICES CDT documented in this encounter Results Not on filedocumented in this encounter Visit Diagnoses Diagnosis Sore throat - Primary Acute pharyngitis Cough Acute viral bronchitis Acute bronchitis documented in this encounter Insurance Payer Benefit Plan Subscriber ID Effective Dates Phone Address Type / Group BCBS [facility] [id number] 2016-Jason [phone] [address] PPO/POS [facility] [id number] [place] [address] documented as of this encounter
[2019-09-10] MEDS ORDERED: AMOX TR/K CLAV 400MG CHEW TAB PO ONE (08:32)
--- NOTE | 2019-09-10 09:54 | EDPHYS ---
Physician Documentation [facility] Name: Nancy Sahin Age: 54 yrs Sex: Female : 1965 Arrival Date: 09/10/2019 Time: 07:49 Bed 18 Private MD: ED Physician Shawn Brambila HPI: 09/09 08:08 This 54 yrs old Female presents to ER via Ambulatory with complaints of Throat kdr Problem. 08:08 The patient or guardian reports Sore throat. kdr 08:10 Onset: The symptoms/episode began/occurred gradually, 3 day(s) ago. Modifying factors: kdr The symptoms are alleviated by nothing. the symptoms are aggravated by activity. 08:28 Severity of symptoms: At their worst the symptoms were moderate, in the emergency kdr department the symptoms have improved, mildly. Modifying factors: The symptoms are alleviated by nothing, the symptoms are aggravated by fluids, foods, swallowing. Associated signs and symptoms: Pertinent positives: cough, Sore throat Pertinent negatives cough, diarrhea, dysphagia, earache, fever, flu-like symptoms, headache, nausea, rhinorrhea, shortness of breath, vomiting. The patient has experienced a previous episode, Several years ago she had a peritonsillar abscess that required I\T\D and IV abx previoisuly. Was seen at [facility] yesterday and apparently they did not effect any treatment. Historical: - Allergies: 08:05 No Known Allergies; dm5 - Home Meds: 08:05 metoprolol tartrate 50 mg Oral tab 1 tab once daily [Active]; lisinopril 10 mg Oral tab dm5 1 tab once daily [Active]; - PMHx: 08:05 Hypertension; dm5 - PSHx: 08:05 I \T\ D; dm5 - Immunization history:: Adult Immunizations up to date. - Social history:: Smoking status: unknown. ROS: 08:28 Constitutional: Negative for fever, chills, and weight loss, Eyes: Negative for injury, kdr pain, redness, and discharge, Neck: Negative for injury, pain, and swelling, Cardiovascular: Negative for chest pain, palpitations, and edema, Respiratory: Negative for shortness of breath, cough, wheezing, and pleuritic chest pain. 08:28 ENT: Positive for sore throat. Exam: 08:28 Constitutional: This is a well developed, well nourished patient who is awake, alert, kdr and in no acute distress. Head/Face: Normocephalic, atraumatic. Eyes: Pupils equal round and reactive to light, extra-ocular motions intact. Lids and lashes normal. Conjunctiva and sclera are non-icteric and not injected. Cornea within normal limits. Periorbital areas with no swelling, redness, or edema. Neck: Trachea midline, no thyromegaly or masses palpated, and no cervical lymphadenopathy. Supple, full range of motion without nuchal rigidity, or vertebral point tenderness. No Meningismus. Chest/axilla: Normal chest wall appearance and motion. Nontender with no deformity. No lesions are appreciated. 08:28 ENT: Posterior pharynx: Airway: normal, no evidence of obstruction, patent, Tonsils: enlarged on the right, with erythema, Unable to adequately assess but no midline shift. There is mild fullness to the right peritonsillar and soft palate region. Vital Signs: 07:59 BP 160 / 86; Pulse 72; Resp 20; Temp 98.9; Pulse Ox 100% on R/A; dm5 08:05 BP 160 / 80; Pulse 70; Resp 18; Temp 98.6; Pulse Ox 100% ; dm5 MDM: 08:15 Patient medically screened. kdr 08:28 Data reviewed: vital signs, nurses notes. Counseling: I had a detailed discussion with kdr the patient and/or guardian regarding: the historical points, exam findings, and any diagnostic results supporting the discharge/admit diagnosis, lab results, the need for outpatient follow up, for definitive care. Physician consultation: Anahi Javier MD was called at 08:35, was contacted at 08:35, regarding consult, patient's condition, need to evaluate the patient as soon as possible, and will see patient in office, shortly. Administered Medications: 08:34 Drug: Augmentin Chewable Tablet 400 mg Route: PO; dm5 Disposition: 09/10/19 08:58 Discharged to Home. Impression: Peritonsillar abscess. - Condition is Stable. - Discharge Instructions: Peritonsillar Abscess, Peritonsillar Abscess, [id number]. - Medication Reconciliation Form, Thank You Letter, Antibiotic Education, Prescription Opioid Use form. - Follow up: Private Physician; When: 11:00 AM; Reason: Further diagnostic work-up, Recheck today's complaints, Continuance of care, Re-evaluation by your physician. - Notes: Follow-up with Dr. Javier at 11:00 AM today Signatures: Marie Liang, RN RN dm5 Shawn Brambila MD MD kdr Corrections: (The following items were deleted from the chart) 08:25 08:15 09/10/2019 08:15 Discharged to Home. Impression: Peritonsillar abscess. Condition kdr is Fair. Forms are Medication Reconciliation Form, Thank You Letter, Antibiotic Education, Prescription Opioid Use. Follow up: Private Physician; When: 2 - 3 days; Reason: If symptoms return, Further diagnostic work-up, Recheck today's complaints, Continuance of care, Re-evaluation by your physician. Problem is new. Symptoms have improved. kdr 08:36 08:25 09/10/2019 08:15 Discharged to Home. Impression: Peritonsillar abscess. Condition kdr is Fair. Forms are Medication Reconciliation Form, Thank You Letter, Antibiotic Education, Prescription Opioid Use. Follow up: Private Physician; When: 2 - 3 days; Reason: If symptoms return, Further diagnostic work-up, Recheck today's complaints, Continuance of care, Re-evaluation by your physician. Follow up: Anahi Javier; When: Be in Dr. Javier's office by 11:00 AM today; Reason: Further diagnostic work-up, Recheck today's complaints, Continuance of care, Re-evaluation by your physician. Problem is new. Symptoms have improved. kdr 09:05 08:58 09/10/2019 08:58 Discharged to Home. Impression: Peritonsillar abscess. Condition dm5 is Stable. Discharge Instructions: Peritonsillar Abscess, [id number]. Forms are Medication Reconciliation Form, Thank You Letter, Antibiotic Education, Prescription Opioid Use. Follow up: Private Physician; When: 11:00 AM; Reason: Further diagnostic work-up, Recheck today's complaints, Continuance of care, Re-evaluation by your physician. kdr
--- NOTE | 2019-09-10 09:55 | ER ---
Nurse's Notes [facility] Name: Nancy Sahni Age: 54 yrs Sex: Female : 1965 Arrival Date: 09/10/2019 Time: 07:49 Bed 18 Private MD: Diagnosis: Peritonsillar abscess Presentation: 09/09 07:59 Chief complaint: Patient states: swollen tonsil, spitting blood and purulent drainage. dm5 Has had a similar episode in the past which required I \T\ D and IV antibiotic. Coronavirus screen: The patient has NOT traveled to a country currently being monitored by the [facility] within the last 14 days. Proceed with normal triage procedures. The patient has NOT had contact with any known and/or suspected case of coronavirus. Proceed with normal triage procedures. Ebola Screen: Patient negative for fever greater than or equal to 101.5 degrees Fahrenheit, and additional compatible Ebola Virus Disease symptoms Patient denies exposure to infectious person. Patient denies travel to an Ebola-affected area in the 21 days before illness onset. No symptoms or risks identified at this time. Initial Sepsis Screen: Does the patient meet any 2 criteria? No. Patient's initial sepsis screen is negative. Does the patient have a suspected source of infection? No. Patient's initial sepsis screen is negative. Risk Assessment: Do you want to hurt yourself or someone else? Patient reports no desire to harm self or others. 07:59 Method Of Arrival: Ambulatory 5 07:59 Acuity: JODIE 3 dm5 Triage Assessment: 08:05 General: Appears in no apparent distress. Behavior is cooperative, anxious, crying. dm5 Pain: Complains of pain in throat. EENT: Throat is reddened has enlarged tonsils. EENT: Reports pain in throat when swallowing spitting of purulent drainage and blood. Neuro: Level of Consciousness is awake, alert, obeys commands, Oriented to person, place, time, situation. Respiratory: Airway is patent pt able to swallow secretions Breath sounds are clear. Historical: - Allergies: 08:05 No Known Allergies; dm5 - Home Meds: 08:05 metoprolol tartrate 50 mg Oral tab 1 tab once daily [Active]; lisinopril 10 mg Oral tab dm5 1 tab once daily [Active]; - PMHx: 08:05 Hypertension; dm5 - PSHx: 08:05 I \T\ D; dm5 - Immunization history:: Adult Immunizations up to date. - Social history:: Smoking status: unknown. Screenin:05 Abuse screen: Denies threats or abuse. Denies injuries from another. Nutritional dm5 screening: No deficits noted. Tuberculosis screening: No symptoms or risk factors identified. Fall Risk None identified. Assessment: 08:56 General: Appears in no apparent distress. uncomfortable, Behavior is cooperative, dm5 anxious. Vital Signs: 07:59 BP 160 / 86; Pulse 72; Resp 20; Temp 98.9; Pulse Ox 100% on R/A; dm5 08:05 BP 160 / 80; Pulse 70; Resp 18; Temp 98.6; Pulse Ox 100% ; dm5 ED Course: 07:49 Patient arrived in ED. ag5 07:53 Shawn Brambila MD is Attending Physician. kdr 08:04 Triage completed. dm5 08:05 Arm band placed on Patient placed in an exam room. dm5 08:05 Patient has correct armband on for positive identification. dm5 08:05 No provider procedures requiring assistance completed. Patient did not have IV access dm5 during this emergency room visit. 08:19 Marie Liang RN is Primary Nurse. dm5 08:25 Anahi Javier MD is Referral Physician. kdr Administered Medications: 08:34 Drug: Augmentin Chewable Tablet 400 mg Route: PO; dm5 Outcome: 08:15 Discharge ordered by . kdr 08:58 Discharge ordered by . kdr 09:05 Patient left the ED. dm5 Signatures: Marie Liang RN RN dm5 Rittger, Kevin, MD MD [facility] Jeannette Dubose ag5 Corrections: (The following items were deleted from the chart) 09:04 08:00 General: Appears in no apparent distress. uncomfortable, Behavior is cooperative, dm5 anxious, crying, dm5
[2019-09-10 10:00] VITALS: O2SAT 100
[2019-09-10 10:02] VITALS: BP 160/80; TEMP 98.6
== END 2019-09-10 09:05 | disposition home or self-care (01) ==
LOC: ER 07:46
DX: J36 Peritonsillar abscess (principal); I10 Essential (primary) hypertension
CPT/HCPCS: 87070; 87081; 99283

== ENCOUNTER 2019-09-10 11:52 | Inpatient (IN) | payer BC ==
--- OUTSIDE RECORDS SUMMARY | 2019-09-10 12:00 | XMS REPORT ---
:1965 [facility] Address [address] [place] [address] Dr. Trejo [address] [place] [id number] Care Team Providers Name Role Phone Unavailable Unavailable Unavailable Problems This patient has no known problems. Allergies, Adverse Reactions, Alerts This patient has no known allergies or adverse reactions. Medications This patient has no known medications.
[2019-09-10 12:13] VITALS: BMI 32.6
[2019-09-10] MEDS ORDERED: ONDANSETRON 4 MG/2 ML VIAL IV PRN (13:49)
[2019-09-10] MEDS ORDERED: MORPHINE 4 MG/ML SYR IV PRN (13:49)
[2019-09-10] MEDS: D5.45NS W/KCL 20MEQ 20 MEQ/1,000 ML BAG IV SCH (14:25)
[2019-09-10 14:38] LABS: Absolute Lymphocytes (CBC) 0.9 K/uL (0.7-4.9); Basophils % 0.4 % (0-1.3); Hematocrit 35.7 % (36.0-45.0); Lymphocytes % 7.7 % (15.3-44.8); MPV 8.3 fL (7.6-11.3); RBC Red Blood Cell Count 4.17 M/uL (3.86-4.86)
[2019-09-10 15:07] LABS: Potassium 3.5 mmol/L (3.5-5.1)
--- NOTE | 2019-09-10 16:03 | RAD REPORT ---
EXAM DESCRIPTION: CT - Soft Tissue Neck W/Contr - 09/10/2019 3:36 pm CLINICAL HISTORY: Neck pain with sore throat COMPARISON: 2013 TECHNIQUE: Computed axial tomography of the neck was obtained. 50 cc Isovue 300 was administered in travenously. Coronal and sagittal reconstruction was performed. All CT scans are performed using dose optimization technique as appropriate and may include automated exposure control or mA/KV adjustment according to patient size. FINDINGS: The right tonsil is enlarged. 15 millimeter low-density area lies adjacent to the tonsil. Ill-defined low density is present along the right aspect of the hypopharynx extending to the right piriform sinus. The subglottic trachea are unremarkable The parotid, submandibular and thyroid glands appear unremarkable. No significant lymphadenopathy is seen The sinuses and mastoids are clear. IMPRESSION: A 15 millimeter right peritonsillar abscess. Additional ill-defined low-density extends inferiorly involving the right aspect of the hypopharynx which may represent early abscess formation
[2019-09-10] MEDS: CLINDAMYCIN INJ 900 MG in NA CHLORIDE 0.9% 50 ML IV SCH (17:15)
[2019-09-10] MEDS: dexAMETHasone 10 MG/ML VIAL IV SCH (17:16)
[2019-09-10] MEDS: MORPHINE 2 MG/ML SYR IV PRN (20:21)
[2019-09-11] MEDS: CLINDAMYCIN INJ 900 MG in NA CHLORIDE 0.9% 50 ML IV SCH ×3 (00:32→17:07)
[2019-09-11] MEDS: dexAMETHasone 10 MG/ML VIAL IV SCH ×3 (00:32→17:07)
[2019-09-11] MEDS: D5.45NS W/KCL 20MEQ 20 MEQ/1,000 ML BAG IV SCH ×3 (00:40→20:26)
[2019-09-11 05:45] LABS: Absolute Lymphocytes (CBC) 0.4 K/uL (0.7-4.9); Basophils % 0.3 % (0-1.3); Lymphocytes % 3.9 % (15.3-44.8); MPV 8.2 fL (7.6-11.3); RBC Red Blood Cell Count 4.18 M/uL (3.86-4.86)
[2019-09-11 08:18] LABS: Blood Morphology Comment NOT SEEN (NOT SEEN); Platelet Estimate ADEQ; Urine White Blood Cell Casts OK
--- NOTE | 2019-09-11 15:14 | P.PN ---
Subjective Date of Service: 09/11/19 Chief Complaint: parapharyngeal abscess/infection Subjective: Improving Pain improving. Now tolerating salvia/secretions. Slept moderately well last night. Tolerating ice chips. Review of Systems ENT: Throat Pain, Throat Swelling Physical Examination - Vital Signs Temperature: 97.4 F Blood Pressure: 143/75 Pulse: 69 Respirations: 18 Pulse Ox (%): 99 - Physical Exam General: Oriented x3, Other (Sleeping but arousable) HEENT: Atraumatic, Normocephalic, Mucous membr. moist/pink, Other (Trismus improved. Voice less "wet" sounding) Neck: Supple, No LAD Respiratory: Normal air movement Cardiovascular: Normal pulses - Studies Laboratory Data (last 24 hrs) 09/11/19 05:29: WBC 11.2 H, Hgb 11.6 L, Hct 36.0, Plt Count 253 Medications List Reviewed: Yes Assessment And Plan - Current Problems (Diagnosis) (1) Parapharyngeal abscess Current Visit: Yes Status: Acute Plan: Continue IV Abx and IV steroids today Start clear liquid diet No immediate plan for surgery. Will assess symptoms and findings in the afternoon - given the CT findings and degree of pain yesterday, I will likely continue IV Abx for today, switch to PO tomorrow mornings and advance diet. If patient continues to do well on PO Abx and off steroids, I would plan for discharge on Sunday afternoon or Sunday morning Plan to discharge in: 48 Hours - Code Status/Comfort Care Code Status: Full Code
[2019-09-11] MEDS: MORPHINE 2 MG/ML SYR IV PRN (20:26)
[2019-09-11 21:44] VITALS: O2SAT 94
[2019-09-12] MEDS: dexAMETHasone 10 MG/ML VIAL IV SCH (00:16)
[2019-09-12] MEDS: CLINDAMYCIN INJ 900 MG in NA CHLORIDE 0.9% 50 ML IV SCH (00:16)
[2019-09-12] MEDS: D5.45NS W/KCL 20MEQ 20 MEQ/1,000 ML BAG IV SCH (05:43)
[2019-09-12 07:21] LABS: Absolute Lymphocytes (CBC) 0.4 K/uL (0.7-4.9); Basophils % 0.7 % (0-1.3); Hematocrit 33.9 % (36.0-45.0); Lymphocytes % 2.9 % (15.3-44.8); MPV 8.3 fL (7.6-11.3); RBC Red Blood Cell Count 3.92 M/uL (3.86-4.86)
[2019-09-12 08:48] LABS: Blood Morphology Comment NOT SEEN (NOT SEEN); Platelet Estimate ADEQ
[2019-09-12 12:33] VITALS: BP 140/67; TEMP 98.1
--- NOTE | 2019-09-12 16:48 | P.PN ---
Subjective Date of Service: 09/12/19 Chief Complaint: parapharyngeal abscess/infection Subjective: Improving Pain resolved. Tolerating regular diet. Review of Systems 10-point ROS is otherwise unremarkable Physical Examination - Vital Signs Temperature: 98.1 F Blood Pressure: 140/67 Pulse: 76 Respirations: 16 Pulse Ox (%): 97 - Physical Exam General: Alert, In no apparent distress, Oriented x3 HEENT: Atraumatic, Normocephalic, Mucous membr. moist/pink, Other (Right uluvar edema resolved. Right pharyngeal edema and erythema resolved) Neck: Supple, No LAD Respiratory: Normal air movement Capillary refill: <2 Seconds - Studies Laboratory Data (last 24 hrs) 09/12/19 07:02: WBC 14.1 H D, Hgb 11.1 L, Hct 33.9 L, Plt Count 252 Medications List Reviewed: Yes Assessment & Plan - Problems (Diagnosis) (1) Parapharyngeal abscess Current Visit: Yes Status: Acute Plan: Given continued improvement over the day with PO Abx, will d/c home with PO Clinda. FU with Yaya in 2weeks - already has appt Discharge Plan: Home Critical Care: No
--- NOTE | 2019-09-13 02:38 | DS ---
Date of Discharge: 09/12/2019 Admission Diagnosis: Parapharyngeal phlegmon with possible spontaneous rupture of abscess. Discharge Diagnosis: Parapharyngeal phlegmon with possible spontaneous rupture of abscess. Indication For Hospitalization: The patient presented to the emergency room on the morning of the with severe right-sided throat pain, ear pain, and uvular edema. She was evaluated by the emergen cy room and there was clinical concern for a peritonsillar abscess and she was referred to the [facility] for [facility]. Upon evaluation in the ENT clinic, she was noted to have a history of tonsillec dmitry. She had significant erythema, edema of the right lateral pharyngeal wall, edema of the uvula, difficulty tolerating her secretions, and was in severe pain. Due to the findings, recommendation wa s made for admission for imaging, evaluation for sepsis including a procalcitonin level, which was ne gative and administration of pain medication, IV antibiotics, and IV steroids. She receives these me dications over approximately 48 hours and had very good clinical improvement. On the morning of the , her steroids were discontinued and she was switched from IV clindamycin 900 q.8 hours to p.o. c lindamycin 300 mg every 6 hours. On the afternoon of the , the patient was tolerating diet, she was in good spirits. She had complete resolution of her pain. The swelling of her right pharyngeal wall and uvula was resolved and she was deemed fit for discharge. Discharge Medications: The patient will resume home medications for blood pressure and back pain, a prescription for p.o. clindamycin is sent electronically to her pharmacy. No additional outpatient s teroids are recommended at this time. Followup with Dr. Javier in approximately 2 weeks. The patient has a previously scheduled appointme nt coinciding with this timeframe. During her hospitalization, I also was in communication with the patient's neurosurgeon in [place], who requested the patient followup with him for reestablishment of care and re-evaluation from her cervical spine surgery. The patient was notified to contact his off [place] to schedule a followup appointment. The patient can resume regular diet. She can resume regular activity without restriction. If she has any worsening or recurrence of her symptoms, she should co ntact Dr. Javier urgently. SEDA/MANISHA Voice ID: [id number] Report ID: [id number]
== END 2019-09-12 17:35 | disposition home or self-care (01) | DRG 153 ==
LOC: 2ND 11:52 → INTOOBSV 11:52 → OBSVTOIN 11:52
PROVIDERS: ADMIT Otolaryngology; ATTEND Otolaryngology
DX: J39.0 Retropharyngeal and parapharyngeal abscess (principal); I10 Essential (primary) hypertension
CPT/HCPCS: 36415; 70491; 80048; 84145; 85025; G0378; G0379; J1100; J2270; J2405; Q9967